=== PATIENT | male | born 1935 | race Caucasian/White ===

== ENCOUNTER 2019-02-23 17:13 | Emergency (ER) | payer BC, MEDICARE, OTHER ==
[~2019-02-23] VITALS: Ht 154.9 cm; Wt 47.2 kg
[~2019-02-23 17:13] MED LIST: PRAM0.122 PO; TRAM50TA2 PO
--- NOTE | 2019-02-23 17:17 | NUR ---
[facility] FROM [facility], SBP ABOVE 100 PER RA. NO MEDICAL COMPLAINTS, PT IS DNR, COMFORT MEASURE. TO ER BED 10, HOOKED TO MONITOR, BP AT 115/55MMHG, CHANGED TO HOSP W, AWAITING MD NIELSEN.
--- NOTE | 2019-02-23 18:55 | NUR ---
CALLED [facility] [phone] NO ANSWER
--- NOTE | 2019-02-23 19:26 | NUR ---
REPORT GIVEN TO [facility] CARR FOR [facility]
--- NOTE | 2019-02-23 20:56 | NUR ---
YSABEL HORNE SPOKE TO ARAVIND, [phone], ETA 0000 TRIP #[id number]
--- NOTE | 2019-02-24 00:27 | NUR ---
CALLED FACILITY TO GIVE REPORT X 3, NO ANSWER.
--- NOTE | 2019-02-24 00:28 | NUR ---
MOE 108 AT BEDSIDE FOR PT TRANSPORT TO [facility]. REPORT GIVEN TO AMBULANCE STAFF.
--- NOTE | 2019-02-24 00:31 | NUR ---
CALLED FACILITY AGAIN STILL NO ANSWER
[2019-02-24 01:28] VITALS: BP 112/59
== END 2019-02-24 01:29 | disposition home or self-care (01) ==
LOC: ER 17:23
DX: I10 Essential (primary) hypertension (principal); E03.9 Hypothyroidism, unspecified; Z86.73 Personal history of transient ischemic attack (TIA), and cerebral infarction without residual deficits; Z79.899 Other long term (current) drug therapy; Z01.31 Encounter for examination of blood pressure with abnormal findings